=== PATIENT | male | born 1975 | race Caucasian/White ===

== ENCOUNTER 2024-01-17 10:41 | Emergency (ER) | payer OTHER, SELFPAY ==
--- NOTE | ~2024-01-17 | XR_ITS ---
XR hand LT min 3V 01/17/2024 11:09 INDICATION: Left hand pain PROCEDURE: 3 views left hand COMPARISON: No prior studies for comparison. FINDINGS: Fracture, dislocation or subluxation is not identified. The soft tissues appear within norm al limits. No foreign bodies are identified. IMPRESSION: 1: NO ACUTE BONE OR JOINT ABNORMALITY IDENTIFIED. Reviewed, dictated and finalized at location B.
--- NOTE | 2024-01-17 10:53 | ED.GENADULT ---
HPI - General Adult General Chief complaint: Wound/Laceration Stated complaint: hand laceration Time Seen by Provider: 01/17/24 10:44 History of Present Illness HPI narrative: 40-year-old male presents to the emergency department for evaluation for an injury to his left middle finger. Patient was using a cow trimmer when he just caught the tip of his finger. Patient has a small laceration to the tip of the finger but states he does suspected went down to the bone. Bleeding was resolved upon arrival emergency department. Patient is unsure of his tetanus status. Related Data Allergies Allergy/AdvReac Type Severity Reaction Status Date / Time LAVENDER Allergy Uncoded 06/11/11 10:17 Review of Systems Review of Systems: All systems reviewed & are unremarkable except as noted in HPI and below Exam Narrative: APPEARANCE: Well appearing, no pain, no distress, well-nourished. HEAD: normocephalic, atraumatic. EYES: PERRLA/EOMI, conjunctivae clear. NOSE: Normal no drainage NECK: Supple. No adenopathy, no masses. RESPIRATORY: Airway patent, respirations nonlabored. Clear to auscultation bilaterally, no rales, rhonchi, wheezing. CARDIOVASCULAR: Regular rate and rhythm without murmurs rubs or gallops. ABDOMINAL: Soft, nontender, nondistended, normal bowel sounds MUSCULOSKELETAL: 2 cm laceration to distal aspect of left middle finger NEURO: Alert. Cranial nerves II through XII intact. Good gait. Good coordination SKIN: Warm, dry. Normal Color Course Course Emergency Course: Laceration was repaired and patient's tetanus was updated. Vital Signs Vital signs: Vital Signs Temperature 98 F 01/17/24 11:04 Pulse Rate 82 01/17/24 11:04 Respiratory Rate 15 01/17/24 11:04 Blood Pressure 132/100 H 01/17/24 11:04 Pulse Oximetry 97 01/17/24 11:04 Oxygen Delivery Room Air 01/17/24 11:04 Temperature 98 F 01/17/24 11:04 Pulse Rate 83 01/17/24 11:43 Respiratory Rate 19 01/17/24 11:43 Blood Pressure 136/99 H 01/17/24 11:43 Pulse Oximetry 98 01/17/24 11:43 Oxygen Delivery Room Air 01/17/24 11:04 Procedures Laceration Laceration 1: Site: upper extremity Side (If applicable): left Size (cm): 2 Description: linear and irregular Depth: simple, single layer Local Anesthetic: lidocaine 1% Amount of anesthesia used (mL): 3 Pre-repair: wound explored, irrigated and irrigated extensively ====== Skin Level ====== Skin layer closed with: prolene Size (cm): 4-0 Number of sutures: 3 Technique: simple, interrupted ====== Subcutaneous Layer ====== ====== Muscle Layer ====== ====== Tendon Layer ====== Medical Decision Making MDM Narrative Medical decision making narrative: 48-year-old male presenting to the emergency department for evaluation for a laceration his finger. X-ray was negative for acute fracture dislocation. Laceration was repaired as described. Patient was started on antibiotics. Patient's tetanus was updated. Patient was updated on wound care from. All questions concerns were addressed patient was well-appearing at time of discharge. Differential Diagnosis Differential Diagnosis: Toe fracture, finger laceration, nail avulsion Vital Signs Vital Signs: Vital Signs Temperature 98 F 01/17/24 11:04 Pulse Rate 82 01/17/24 11:04 Respiratory Rate 15 01/17/24 11:04 Blood Pressure 132/100 H 01/17/24 11:04 Pulse Oximetry 97 01/17/24 11:04 Oxygen Delivery Room Air 01/17/24 11:04 Temperature 98 F 01/17/24 11:04 Pulse Rate 83 01/17/24 11:43 Respiratory Rate 19 01/17/24 11:43 Blood Pressure 136/99 H 01/17/24 11:43 Pulse Oximetry 98 01/17/24 11:43 Oxygen Delivery Room Air 01/17/24 11:04 Imaging Data Radiologist's impression: Impressions Hand X-Ray 01/17/24 11:12 IMPRESSION: 1: NO ACUTE BONE OR JOINT ABNORMALITY IDENTIFIED.
[2024-01-17] MEDS: TETANUS,DIPHTHERIA,AC PERTUSSIS ADULT (0.5 ML) BOOSTRIX IM (10:59)
[2024-01-17 11:04] VITALS: BP 132/100; PULSE 82; RESP 15; TEMP 36.6; O2SAT 97
[2024-01-17 11:43] VITALS: BP 136/99; PULSE 83; RESP 19; O2SAT 98
== END 2024-01-17 11:45 | disposition home or self-care (01) ==
PROVIDERS: Emergency Provider Emergency Medicine
DX: S61.213A Laceration without foreign body of left middle finger without damage to nail, initial encounter (principal); W29.3XXA Contact with powered garden and outdoor hand tools and machinery, initial encounter; Z23 Encounter for immunization
CPT/HCPCS: 12001; 73130; 90471; 90715; 99283